=== PATIENT | female | born 1980 | race African-American/Black ===

== ENCOUNTER 2017-02-13 19:29 | Emergency (ER) | payer MEDICAID ==
[~2017-02-13] VITALS: Ht 167.6 cm; Wt 137.0 kg
[2017-02-14] MEDS ORDERED: SODIUM CHLORIDE 0.9% 1,000 ML IV ONE (03:15)
[2017-02-14] MEDS ORDERED: KETOROLAC 30MG/ML VIAL IV STA (03:15)
[2017-02-14] MEDS ORDERED: MORPHINE SULFATE 4 MG/ML CPJ (NOT FOR IM USE) IV STA (03:15)
[2017-02-14] MEDS ORDERED: ONDANSETRON HCL 4MG/2ML VIAL IV NR (03:30)
[2017-02-14 03:33] LABS: EOSINOPHILS % 0.9 % (0.0-5.0); HEMATOCRIT. 42.9 % (36.0-48.0); LYMPHOCYTES % 23.2 % (20.0-50.0); MEAN CORPUSCULAR HEMOGLOBIN 27.6 pg (28.0-32.0); MEAN CORPUSCULAR VOLUME 84.7 fL (81.0-99.0); MEAN PLATELET VOLUME 8.8 fl (7.4-10.4); MONOCYTES % 11.4 % (2.0-8.0); NEUTROPHILS % 63.5 % (40.0-76.0); PLATELET 220 x1000/uL (130-400); RED BLOOD CELL COUNT 5.07 mill/uL (4.2-5.4); RED CELL DISTRIBUTION WIDTH 15.6 % (11.6-14.6)
[2017-02-14 03:36] LABS: CLARITY URINE CLEAR (CLEAR); COLOR URINE YELLOW (YELLOW); KETONES URINE TRACE (NEGATIVE); LEUKOCYTE ESTERASE URINE NEGATIVE (NEGATIVE); NITRITE URINE NEGATIVE (NEGATIVE); OCCULT BLOOD URINE NEGATIVE (NEGATIVE); PH URINE 5.5 (4.5-8.0); PROTEIN URINE NEGATIVE (NEGATIVE); SPECIFIC GRAVITY URINE 1.021 (1.005-1.030); UROBILINOGEN URINE 0.2 E.U./dL (0.2-1.0)
[2017-02-14 03:41] LABS: INR 1.1; PROTHROMBIN TIME 10.9 sec (9.4-11.6)
[2017-02-14 03:48] LABS: CARBON DIOXIDE 27 mEq/L (21-32); CHLORIDE 103 mEq/L (98-107)
[2017-02-14 05:54] VITALS: BP 137/75
== END 2017-02-14 06:05 | disposition home or self-care (01) ==
LOC: ER 19:29
DX: J18.9 Pneumonia, unspecified organism (principal); F17.210 Nicotine dependence, cigarettes, uncomplicated
CPT/HCPCS: 36415; 71010; 80053; 81003; 81025; 85025; 85610; 87804; 96361; 96374; 96375; 99285; J1885; J2405; J7030; Z7610

== ENCOUNTER 2018-07-13 10:13 | Emergency (ER) | payer MEDICAID ==
[~2018-07-13] VITALS: Ht 175.3 cm; Wt 141.0 kg
[2018-07-13 11:24] LABS: BASOPHILS % 1.1 % (0.0-2.0); EOSINOPHILS % 1.3 % (0.0-5.0); HEMATOCRIT. 42.5 % (36.0-48.0); HEMOGLOBIN. 14.4 g/dL (12.0-16.0); LYMPHOCYTES % 28.3 % (20.0-50.0); MEAN CORPUSCULAR HEMOGLOBIN 28.7 pg (28.0-32.0); MEAN CORPUSCULAR VOLUME 84.6 fL (81.0-99.0); MEAN PLATELET VOLUME 8.3 fl (7.4-10.4); MONOCYTES % 7.4 % (2.0-8.0); NEUTROPHILS % 61.9 % (40.0-76.0); PLATELET 261 x1000/uL (130-400); RED BLOOD CELL COUNT 5.02 mill/uL (4.2-5.4)
[2018-07-13 11:30] LABS: CHLORIDE 104 mEq/L (98-107)
[2018-07-13 11:44] LABS: HCG SCREEN NEGATIVE
[2018-07-13] MEDS ORDERED: ACETAMINOPHEN 650MG/20.3ML UDC PO ONE (13:30)
[2018-07-13] MEDS ORDERED: SODIUM CHLORIDE 0.9% 1000ML BAG (SEPSIS BOLUS) IV ONE (13:30)
[2018-07-13] MEDS ORDERED: PROCHLORPERAZINE 10MG/2ML VIAL IV PRN ×2 (13:30→14:15)
[2018-07-13] MEDS ORDERED: IOHEXOL-350 100 ML BOTTLE ONE (14:05)
[2018-07-13] MEDS ORDERED: ALBUTEROL (0.083%) 2.5MG/3ML NEB HHN NR (15:18)
[2018-07-13] MEDS ORDERED: KETOROLAC 30MG/ML VIAL IV NR (15:18)
[2018-07-13 15:30] VITALS: BP 128/86
== END 2018-07-13 16:45 | disposition home or self-care (01) ==
LOC: ER 10:13
DX: R07.89 Other chest pain (principal); I10 Essential (primary) hypertension; R06.02 Shortness of breath; R51 Headache; R20.0 Anesthesia of skin; E66.01 Morbid (severe) obesity due to excess calories; Z68.42 Body mass index [BMI] 45.0-49.9, adult; Z98.890 Other specified postprocedural states; Z96.652 Presence of left artificial knee joint
CPT/HCPCS: 36415; 71045; 71275; 80053; 81025; 83880; 84484; 84703; 85025; 93005; 94640; 96374; 99284; J1885; J7030; J7611; Q9967; Z7610

== ENCOUNTER 2023-04-03 22:59 | Emergency (ER) | payer MEDICAID ==
[~2023-04-03] VITALS: Ht 162.6 cm; Wt 143.0 kg
[~2023-04-03 22:59] MED LIST: AMOX1TAB16 MT; ASPIRIN; ATOR-2 PO; COR3 PO; FAMO20TA8 PO; HYDR-4005 MT; INSU100I28 SQ; LOSA50TA41 MT; SEMA3TAB4
[2023-04-03 23:00] VITALS: O2SAT 98
[2023-04-03] MEDS: SODIUM CHLORIDE 0.9% 1,000 ML IV ONE (23:30)
[2023-04-03] MEDS: ONDANSETRON HCL 4MG/2ML INJ IV ONE (23:30)
[2023-04-03] MEDS: KETOROLAC 15MG/ML VIAL IV ONE (23:30)
[2023-04-04 00:30] LABS: BASOPHILS % 0.2 % (0.0-2.0); HEMATOCRIT. 39.8 % (36.0-48.0); HEMOGLOBIN. 13.6 g/dL (12.0-16.0); MEAN CORPUSCULAR HEMOGLOBIN 28.8 pg (28.0-32.0); MEAN CORPUSCULAR HGB CONC 34.3 g/dL (31.0-37.0); MEAN CORPUSCULAR VOLUME 83.9 fL (81.0-99.0); MEAN PLATELET VOLUME 8.5 fl (7.4-10.4); MONOCYTES % 8.8 % (2.0-8.0); PLATELET 297 x1000/uL (130-400); RED BLOOD CELL COUNT 4.74 mill/uL (4.2-5.4); WHITE BLOOD COUNT 7.8 x1000/uL (4.5-11.0)
[2023-04-04 00:53] LABS: ALANINE AMINOTRANSFERASE 20 IU/L (10-49); AMYLASE 106 IU/L (30-118); ASPARTATE AMINOTRANSFERASE 19 IU/L (<34); BILIRUBIN TOTAL 0.3 mg/dL (0.1-1.0); CALCIUM 8.7 mg/dL (8.7-10.4); CARBON DIOXIDE 23 mEq/L (21-32); CHLORIDE 109 mEq/L (98-107); CREATININE 1.2 mg/dL (0.6-1.0); GLUCOSE 117 mg/dL (70-105); POTASSIUM 3.8 mEq/L (3.5-5.1); PROTEIN TOTAL 7.4 g/dL (6.0-8.3); SODIUM 137 mEq/L (136-145); UREA NITROGEN BLOOD 8 mg/dL (9-23)
[2023-04-04 00:55] LABS: ETHANOL BLOOD < 10 mg/dL (<10)
[2023-04-04 01:12] LABS: PROTHROMBIN TIME 10.7 sec (9.6-11.0)
[2023-04-04 01:13] LABS: HCG SCREEN NEGATIVE
[2023-04-04] MEDS: ONDANSETRON HCL 4MG/2ML INJ IV NR (04:04)
[2023-04-04] MEDS: KETOROLAC 15MG/ML VIAL IV NR (04:04)
[2023-04-04] MEDS ORDERED: ACET-2708 MT (05:27)
[2023-04-04] MEDS ORDERED: ONDA4TAB50 MT (05:27)
[2023-04-04] MEDS ORDERED: MAG355OR21 MT (05:27)
[2023-04-04 05:46] VITALS: BP 132/86; PULSE 87; RESP 19
[2023-04-04] MEDS: HYDROCODONE/ACETAMINOPHEN 5/325MG TABLET PO ONE (05:46)
[2023-04-04] MEDS ORDERED: IOHEXOL-300 100 ML BOTTLE ONE (06:39)
[2023-04-05] MEDS ORDERED: IOHEXOL-300 100 ML BOTTLE ONE (11:50)
== END 2023-04-04 05:56 | disposition home or self-care (01) ==
LOC: ER 23:36
DX: L02.211 Cutaneous abscess of abdominal wall (principal); E11.9 Type 2 diabetes mellitus without complications; K21.9 Gastro-esophageal reflux disease without esophagitis; I10 Essential (primary) hypertension; Z90.49 Acquired absence of other specified parts of digestive tract; Z98.890 Other specified postprocedural states; Z79.899 Other long term (current) drug therapy
CPT/HCPCS: 36415; 96361; 96374; 96375; 99285; 80053; 80320; 82150; 84703; 83605; 83690; 85025; 85610; 74177; J7030; Q9967; J1885; J2405; G0480

== ENCOUNTER 2023-08-21 17:55 | Emergency (ER) | payer MEDICAID ==
[~2023-08-21] VITALS: Ht 162.6 cm; Wt 138.3 kg
[~2023-08-21 17:55] MED LIST changes: +ACET-2708 MT; +MAG355OR21 MT; +ONDA4TAB50 MT
[2023-08-21 18:08] VITALS: TEMP 98.2; O2SAT 100
[2023-08-21] MEDS ORDERED: MORPHINE SULFATE 4 MG/ML INJ (FOR IV/IM USE) IM ONE (20:00)
[2023-08-21] MEDS ORDERED: ONDANSETRON 4MG ODT PO ONE (20:00)
[2023-08-21 20:16] LABS: BASOPHILS % 0.9 % (0.0-2.0); EOSINOPHILS % 0.8 % (0.0-5.0); HEMATOCRIT. 43.3 % (36.0-48.0); HEMOGLOBIN. 14.5 g/dL (12.0-16.0); LYMPHOCYTES % 33.2 % (20.0-50.0); MEAN CORPUSCULAR HEMOGLOBIN 29.7 pg (28.0-32.0); MEAN CORPUSCULAR HGB CONC 33.5 g/dL (31.0-37.0); MEAN CORPUSCULAR VOLUME 88.5 fL (81.0-99.0); MEAN PLATELET VOLUME 8.3 fl (7.4-10.4); MONOCYTES % 8.5 % (2.0-8.0); NEUTROPHILS % 56.6 % (40.0-76.0); PLATELET 277 x1000/uL (130-400); RED BLOOD CELL COUNT 4.89 mill/uL (4.2-5.4); RED CELL DISTRIBUTION WIDTH 14.7 % (11.6-14.6); WHITE BLOOD COUNT 9.5 x1000/uL (4.5-11.0)
[2023-08-21 20:22] LABS: CHLORIDE 107 mEq/L (98-107); POTASSIUM 3.4 mEq/L (3.5-5.1); SODIUM 138 mEq/L (136-145)
[2023-08-21 20:23] LABS: CALCIUM 9.1 mg/dL (8.7-10.4); CARBON DIOXIDE 22 mEq/L (21-32)
[2023-08-21 20:25] LABS: HCG SCREEN NEGATIVE
[2023-08-21 20:28] LABS: CREATININE 0.7 mg/dL (0.6-1.0); GLUCOSE 117 mg/dL (70-105); UREA NITROGEN BLOOD 7 mg/dL (9-23)
[2023-08-21 20:30] LABS: ALANINE AMINOTRANSFERASE 20 IU/L (10-49); ALBUMIN 4.2 g/dL (3.2-4.8); ASPARTATE AMINOTRANSFERASE 18 IU/L (<34); BILIRUBIN DIRECT 0.2 mg/dL (<=3.0); BILIRUBIN TOTAL 0.5 mg/dL (0.1-1.0)
[2023-08-21 20:31] LABS: PROTEIN TOTAL 7.8 g/dL (6.0-8.3)
[2023-08-21] MEDS ORDERED: TOPUD MT (21:24)
[2023-08-21] MEDS ORDERED: DICY-18 MT (21:24)
[2023-08-21] MEDS ORDERED: MAG355OR21 MT (21:24)
[2023-08-21] MEDS ORDERED: ONDA4TAB11 PO (21:24)
[2023-08-21 22:05] VITALS: BP 194/124; PULSE 89; RESP 16
[2023-08-21] MEDS: MORPHINE SULFATE 4 MG/ML INJ (FOR IV/IM USE) IM NR (22:05)
[2023-08-21] MEDS: ONDANSETRON 4MG ODT PO NR (22:05)
== END 2023-08-21 21:49 | disposition home or self-care (01) ==
LOC: ER 17:55
DX: R10.9 Unspecified abdominal pain (principal); R11.2 Nausea with vomiting, unspecified; E11.9 Type 2 diabetes mellitus without complications; K21.9 Gastro-esophageal reflux disease without esophagitis; I10 Essential (primary) hypertension; Z90.49 Acquired absence of other specified parts of digestive tract; Z98.890 Other specified postprocedural states; Z79.899 Other long term (current) drug therapy
CPT/HCPCS: 99285; 74176; 80076; 80048; 82962; 84703; 83690; 85025; 36415; 96372; Q0162; J2270

== ENCOUNTER 2024-06-30 14:45 | Emergency (ER) | payer MEDICAID ==
[~2024-06-30] VITALS: Ht 167.6 cm; Wt 146.0 kg
[~2024-06-30 14:45] MED LIST changes: +DICY-18 MT; +ONDA-239 PO; +TOPUD MT
[2024-06-30 14:51] VITALS: BP 120/86; PULSE 89; RESP 18; TEMP 36.7; O2SAT 100
== END 2024-06-30 22:13 | disposition left against medical advice (07) ==
LOC: ER 14:45
DX: R06.02 Shortness of breath (principal); Z53.21 Procedure and treatment not carried out due to patient leaving prior to being seen by health care provider